=== PATIENT | female | born 1960 | race Hispanic/Latino ===

== ENCOUNTER 2017-09-12 11:09 | Day surgery (SDC) | payer BC ==
[2017-09-05 08:29] VITALS: BMI 30.4
[2017-09-12] MEDS ORDERED: Midazolam 2 MG/2 ML VIAL ONE (13:29)
[2017-09-12] MEDS ORDERED: Propofol 10 mg/ml Inj (20 ML) ONE (13:29)
[2017-09-12] MEDS ORDERED: HYDROmorphone 0.5 mg/0.5 ml ISec IVP PRN ×2 (14:16→14:19)
[2017-09-12 15:40] VITALS: BP 134/77; PULSE 65; RESP 20; TEMP 98; O2SAT 99
--- NOTE | 2017-09-15 06:05 | OP ---
PROCEDURE DATE: 09/12/2017 PREOPERATIVE DIAGNOSIS: Endometrial hyperplasia. POSTOPERATIVE DIAGNOSIS: Uterine fibroid. PROCEDURES PERFORMED: Operative hysteroscopy, myomectomy, D and C. SURGEON: Mitchell Fang MD TYPE OF ANESTHESIA: General LMA. ESTIMATED BLOOD LOSS: Minimal. DESCRIPTION OF PROCEDURE: After informed consent was obtained and explained to the patient, the patient signed her consent, the patient was brought into the operating room. General LMA anesthesia was induced. The patient was prepped and draped in the usual sterile fashion. Examination under anesthesia was performed. Uterus was found to be top normal size. Right and left adnexa were felt to be negative. A weighted speculum was inserted into the vaginal vault. The anterior lip of the cervix was visualized and grasped with single-tooth tenaculum. Endocervical canal was dilated and a diagnostic scope was inserted. Scope revealed both ostia normal. Endocervical canal was found to be normal. The patient had an anterior submucosal either polyp or large fibroid noted. The tissue itself was fairly firm, so using an operative Storz resectoscope, a resection of the fibroid tissue was performed. There was no penetration through the endometrial cavity. Hemostasis was maintained well throughout the entire time. A curettage of the endometrial cavity was then taken; that specimen was sent to Pathology for examination. The procedure was terminated. At this point, there was no bleeding noted. The patient was awakened and sent to the recovery room in stable condition. Mitchell Fang MD
== END 2017-09-12 16:15 | disposition home or self-care (01) ==
LOC: SDS 11:09
PROVIDERS: ATTEND Obstetrics & Gynecology Gynecology
DX: N84.0 Polyp of corpus uteri (principal); N85.00 Endometrial hyperplasia, unspecified; I44.7 Left bundle-branch block, unspecified; I35.0 Nonrheumatic aortic (valve) stenosis; Z90.49 Acquired absence of other specified parts of digestive tract
CPT/HCPCS: 58561; 88305; J1170; J2001; J2250; J2405; J2704; J3010; J7120